=== PATIENT | male | born 1995 | race Caucasian/White ===

== ENCOUNTER 2017-12-10 10:03 | Emergency (ER) | payer OTHER ==
[2017-12-10 11:59] VITALS: BP 113/67
--- NOTE | 2017-12-17 07:19 | ED ---
Laceration/Wound HPI - HPI Summary HPI Summary: Pt. is a 22 y.o male who presents to the ER for evaluation of a lip wound that occurred last night. Pt. states he was playing basketball when he was elbowed in the lower lip. No head injury of LOC. Immunizations are up to date. Pt. was concerned because lip started bleeding again this morning. No past medical hx. Touching affected area makes sxs worse. Rest makes sxs better. Sxs are mild in severity. - History of Current Complaint Stated Complaint: LIP LAC Time Seen by Provider: 12/10/17 11:25 Hx Obtained From: Patient Pain Intensity: 0 Pain Scale Used: 0-10 Numeric - Allergy/Home Medications Allergies/Adverse Reactions: Allergies Allergy/AdvReac Type Severity Reaction Status Date / Time No Known Allergies Allergy Verified 12/10/17 10:41 Home Medications: Home Medications NK [No Home Medications Reported] 12/10/17 [History Confirmed 12/10/17] PMH/Surg Hx/FS Hx/Imm Hx Previously Healthy: Yes Infectious Disease History: No Infectious Disease History: Denies: Traveled Outside the [place] in Last 30 Days - Family History Known Family History: Positive: Other - Noncontributory - Social History Occupation: Student Lives: Dormitory/Roommates Alcohol Use: Occasionally Substance Use Type: Reports: None Smoking Status (MU): Never Smoked Tobacco Review of Systems Eyes: Negative Positive: Other - Abrasion to lower lip Neurological: Negative All Other Systems Reviewed And Are Negative: Yes Physical Exam Triage Information Reviewed: Yes Vital Signs On Initial Exam: Initial Vitals Temp Pulse Resp BP Pulse Ox 98.4 F 51 16 130/88 99 12/10/17 10:38 12/10/17 10:38 12/10/17 10:38 12/10/17 10:38 12/10/17 10:38 Vital Signs Reviewed: Yes Appearance: Positive: Well-Appearing - Pt. sitting in chair in NAD. Skin: Positive: Warm, Dry Head/Face: Positive: Other - Superficial abrasion noted to lower lip. No active bleeding. No dental trauma. Eyes: Positive: Normal, EOMI, HEMA Neck: Positive: Supple, Nontender Neurological: Positive: Normal, Alert, Oriented to Person Place, Time, CN Intact II-III Psychiatric: Positive: Affect/Mood Appropriate Diagnostics - Vital Signs Vital Signs Temp Pulse Resp BP Pulse Ox 12/10/17 11:58 97.9 F 70 16 113/67 99 12/10/17 10:38 98.4 F 51 16 130/88 99 - Laboratory Lab Statement: Any lab studies that have been ordered have been reviewed, and results considered in the medical decision making process. Laceration Repair Course/Dx - Course Course Of Treatment: Pt. presenting for evaluation of superficial lip abrasion. No sutures required. Pt. reassured. Advised basic wound care. Can ice intermittently. Tylenol or Motrin for pain as directed. Will f.u in [facility] if needed. Pt. understands and agrees with plan. - Differential Dx Differental Diagnoses: Abrasion, Foreign Body, Hematoma, Laceration - Clinical Impression Provider Diagnoses: Lip abrasion Discharge - Sign-Out/Discharge Documenting (check all that apply): Patient Departure - Discharge Plan Condition: Good Disposition: HOME Patient Education Materials: Facial Laceration (ED) Referrals: [facility] [Outside] Sanna Morales MD [Primary Care Provider] - Additional Instructions: Follow up with [facility] if needed Ice intermittently Tylenol or Motrin for pain as directed Soft diet Avoid spicy or acidic foods - Billing Disposition and Condition Condition: GOOD Disposition: Home
== END 2017-12-10 11:58 | disposition home or self-care (01) ==
LOC: ED 10:03
DX: S00.511A Abrasion of lip, initial encounter (principal); W50.0XXA Accidental hit or strike by another person, initial encounter; Y93.67 Activity, basketball; Y92.310 Basketball court as the place of occurrence of the external cause
CPT/HCPCS: 99282

== ENCOUNTER 2018-06-08 09:11 | Emergency (ER) | payer OTHER ==
[2018-06-08 09:26] VITALS: BP 116/77
--- NOTE | 2018-06-08 09:30 | UC ---
Back Pain HPI - HPI Summary HPI Summary: 23 year old male , student at [employer], with no prior history of back pain, back problems presents with right sided back pain after a fall last night in basketball. patient states he is unsure how he fell, tripped over a students knee, but did not have pain immediately. Developed over the night, last night took Advil with some improvement, no medications this AM. Patient states no hematura, no numbness, tingling, walking well, no loss of bowel or bladder function. + pain with deep breathing. - History of Current Complaint Chief Complaint: UCBackPain Stated Complaint: MID BACK PAIN Time Seen by Provider: 06/08/18 09:27 Hx Obtained From: Patient Onset/Duration: Sudden Onset, Lasting Hours Timing: Intermittent Severity Initially: Mild Severity Currently: Moderate Pain Intensity: 7 Pain Scale Used: 0-10 Numeric Back Pain: Is Discrete @ - right back Character: Sharp Aggravating Factor(s): Movement Alleviating Factor(s): Rest - Allergies/Home Medications Allergies/Adverse Reactions: Allergies Allergy/AdvReac Type Severity Reaction Status Date / Time No Known Allergies Allergy Verified 06/08/18 09:26 Home Medications: Home Medications Fexofenadine (NF) [Dottie 180 (NF)] 180 mg PO DAILY WITH MEAL 06/08/18 [ History Confirmed 06/08/18] PMH/Surg Hx/FS Hx/Imm Hx Previously Healthy: Yes - Surgical History Surgical History: None - Family History Known Family History: Positive: Other - Noncontributory - Social History Alcohol Use: Weekly Substance Use Type: None Smoking Status (MU): Never Smoked Tobacco Review of Systems All Other Systems Reviewed And Are Negative: Yes Constitutional: Positive: Negative Musculoskeletal: Positive: Arthralgia, Decreased ROM, Myalgia Is Patient Immunocompromised?: No Physical Exam Triage Information Reviewed: Yes Appearance: Well-Appearing, No Pain Distress, Well-Nourished Vital Signs: Initial Vital Signs Temp 98.5 F 06/08/18 09:22 Pulse 47 06/08/18 09:22 Resp 18 06/08/18 09:22 BP 116/77 06/08/18 09:22 Pulse Ox 100 06/08/18 09:22 Vital Signs Reviewed: Yes Eyes: Positive: Conjunctiva Clear Neck: Positive: Nontender, No Lymphadenopathy. Negative: Nuchal Rigidity, Tenderness @, Enlarged Nodes @ Respiratory: Positive: Lungs clear, Normal breath sounds, No respiratory distress, No accessory muscle use, Other: - tenderness over lower ribs, ~ 9/10 with deep palpation, no deformity noted with palpation or with inhalation/ exhalation. no swelling.. Negative: Respiratory distress, Decreased breath sounds, Crackles, Rhonchi, Stridor, Wheezing Musculoskeletal: Positive: Strength Intact, ROM Intact Neurological Exam: Normal Neurological: Positive: Other: - patellare reflexes 2+ b/l, + DF/PF, full strength lower extremities, normal gait, well cooridiated upper body motions. Psychological Exam: Normal Back Pain Course/Dx - Course Course Of Treatment: likely rib contusion or sprain, discussed radiographs, but deemed not necessary due to symptoms/ exam. patient educated on warning signs to go to ER including SOB, hemopytsis. parents and patient verbalized understanding. Will follow up with [facility] within 2-3 days if no improvement. NSAIDS, rest, ice if needed. - Differential Dx/Diagnosis Provider Diagnosis: Rib contusion Discharge - Sign-Out/Discharge Documenting (check all that apply): Patient Departure All imaging exams completed and their final reports reviewed: No Studies - Discharge Plan Condition: Good Disposition: HOME Prescriptions: Naproxen [Naproxen 500 mg tab] 500 mg PO BID #30 tablet Patient Education Materials: Rib Contusion (ED) Referrals: No Primary Care Phys,NOPCP [Primary Care Provider] - Additional Instructions: - Naproxen/ Alleve 500mg twice daily x 3-5 days to decrease inflammation and pain - Gentle stretching exercises as tolerated - "let pain be your guide" increase activities as tolerated, do not do if painful - Ice/ Heat as needed for comfort - GO to ER with increased pain, numbness, tingling, loss of bowel or bladder function, decreased ambulation, coughing up blood or shortness of breath. - Billing Disposition and Condition Condition: GOOD Disposition: Home
== END 2018-06-08 10:15 | disposition home or self-care (01) ==
LOC: UCEAST 09:11
DX: S20.221A Contusion of right back wall of thorax, initial encounter (principal); W19.XXXA Unspecified fall, initial encounter; Y93.67 Activity, basketball; Y92.9 Unspecified place or not applicable
CPT/HCPCS: 99211; G0463